=== PATIENT | female | born 1950 | race Caucasian/White ===

== ENCOUNTER 2021-12-19 09:23 | Emergency (ER) | payer MEDICARE, SELFPAY ==
--- NOTE | ~2021-12-19 | XR_ITS ---
EXAMINATION: XR hand LT min 3V DATE: 12/19/2021 09:51 INDICATION: Laceration, pain and swelling at the left hand post fall 2 days prior. TECHNIQUE: Posteroanterior, oblique and lateral views of the left hand were obtained. COMPARISON: None. FINDINGS: Diffuse osteopenia. 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 Alignment is oth erwise normal. No fracture. Mild polyarticular osteoarthritis involving the majority of the joints th roughout the left hand and wrist. Mild soft tissue swelling dorsal to the right head of the third met acarpal, at the third and fourth proximal interphalangeal joints and intervening third and fourth pro ximal phalanges. No radiopaque foreign bodies. IMPRESSION: 1. 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 No other acute osseous abnormalit y or radiopaque foreign bodies. 2. 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 Reviewed, dictated and finalized at location A. IMPRESSION: 1. 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 No other ac ayah osseous abnormality or radiopaque foreign bodies. 2. 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
[2021-12-19 09:37] VITALS: BP 114/91; PULSE 73; RESP 18; TEMP 36.7; O2SAT 100
--- NOTE | 2021-12-19 11:31 | ED.UPPEXIN ---
HPI - Extremity Injury (Upper) General Chief Complaint: Extremity Injury, Upper Stated Complaint: left hand injury Time Seen by Provider: 12/19/21 10:58 History of Present Illness HPI narrative: 70-year-old female presents the emergency room for evaluation of a left hand injury. Patient states 2 days ago she was out camping, when she fell striking her hand on a folding chair. Patient states she experienced a laceration to the back of her hand. Related Data Allergies Allergy/AdvReac Type Severity Reaction Status Date / Time No Known Allergies Allergy Verified 12/19/21 11:01 Review of Systems Review of Systems: CONSTITUTIONAL: Denies fever, chills, or sweats. EYES: Denies visual changes, redness, or discharge. ENT: Denies rhinorrhea, congestion, sore throat, or otalgia. CARDIOVASCULAR: Denies chest pain, palpitations, or edema. RESPIRATORY: Denies cough or dyspnea. GASTROINTESTINAL: Denies abdominal pain, nausea, vomiting, or diarrhea. GENITOURINARY: Denies dysuria SKIN: Reports skin tear to left hand MUSCULOSKELETAL: Reports left hand pain NEUROLOGIC: Denies headache, numbness, dizziness, or weakness. PSYCHIATRIC: Denies anxiety or depression. Exam Narrative: GENERAL: Well-appearing, well-nourished, no physical limitations, and in no acute distress. HEAD: Normocephalic, atraumatic. EYES: Conjunctivae normal, PERRLA and EOMI. CHEST: Clear to auscultation. No respiratory distress. No wheezes rales or rhonchi. No tenderness. HEART: Regular rate and rhythm. No murmur heard. Normal peripheral pulses. EXTREMITIES: Left hand: Tenderness to the dorsal surface, no soft tissue swelling, ecchymosis extends from the base of the hand through the fingertips of the second third and fourth fingers. 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 No noted wounds NEURO: No focal deficits. Alert and oriented x3. MAEW. CN's II-XI intact bilaterally, normal gait PSYCH: Cooperative. Normal mood and affect. Course Vital Signs Vital signs: Vital Signs Temperature 36.7 C 12/19/21 09:37 Pulse Rate 73 12/19/21 09:37 Respiratory Rate 18 12/19/21 09:37 Blood Pressure 114/91 H 12/19/21 09:37 Pulse Oximetry 100 12/19/21 09:37 Oxygen Delivery Room Air 12/19/21 09:37 Temperature 36.7 C 12/19/21 09:37 Pulse Rate 73 12/19/21 09:37 Respiratory Rate 18 12/19/21 09:37 Blood Pressure 114/91 H 12/19/21 09:37 Pulse Oximetry 100 12/19/21 09:37 Oxygen Delivery Room Air 12/19/21 09:37 MDM - Extremity Injury (Upper) Imaging Data Radiologist's impression: Impressions Hand X-Ray 12/19/21 09:57 IMPRESSION: 1. 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 No other acute osseous abnormality or radiopaque foreign bodies. 2. 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 Discharge Plan Discharge Clinical Impression: Contusion of hand, left, Boutonniere deformity of left finger(s), Skin tear Patient Disposition: Home, Self-Care Condition: Stable Instructions: Antibiotic Form, Contusion in Adults (ED), Skin Tear (ED) Prescriptions: New cephalexin 500 mg capsule 500 mg PO Q12H 7 Days Qty: 14 0RF Follow-up/Referrals: Abimael Reis MD [Physician] - PHYSICIAN,IN STORE REPRESENTATIVE [Primary Care Provider] - Time of Disposition: 11:41
[2021-12-19] MEDS: TETANUS,DIPHTHERIA,AC PERTUSSIS ADULT (0.5 ML) BOOSTRIX IM (11:42)
--- NOTE | 2021-12-19 12:00 | PC.NURSE ---
Metal finger splint applied to left fifth finger per BEHZAD Lopes.
[2021-12-19 12:08] VITALS: BP 151/77; PULSE 67; RESP 18; O2SAT 98
== END 2021-12-19 12:09 | disposition home or self-care (01) ==
PROVIDERS: Emergency Provider Nurse Practitioner Family
DX: S60.222A Contusion of left hand, initial encounter (principal); M20.022 Boutonniere deformity of left finger(s); S61.412A Laceration without foreign body of left hand, initial encounter; W19.XXXA Unspecified fall, initial encounter; Z23 Encounter for immunization
CPT/HCPCS: 29130; 73130; 90471; 90715; 99283